=== PATIENT | male | born 1995 | race Caucasian/White ===

== ENCOUNTER 2019-06-20 02:31 | Emergency (ER) | payer MEDICAID ==
[~2019-06-20] VITALS: Ht 190.5 cm; Wt 107.0 kg
[2019-06-20 02:35] VITALS: BP_SYST 116
--- NOTE | 2019-06-20 02:35 | NUR ---
Patient to ER bed 6 to gown for evaluation. Side rails up. Report given to DOROTEO BUCIO.
--- NOTE | 2019-06-20 02:40 | NUR ---
Pt BIB [employer] C/O back and RT leg pain since today. Pt denies any fall or trauma to the area as a cause. Denies any other symptoms at this time. Will continue to monitor.
--- NOTE | 2019-06-20 03:55 | NUR ---
ER Dr. Batista at bedside examining patient.
[2019-06-20] MEDS ORDERED: ONDANSETRON 4 MG ODT TAB PO ONE (04:00)
[2019-06-20] MEDS ORDERED: HYDROcodone/ACETAMIN 5-325 MG TAB (NORCO/ VICODIN) PO ONE (04:00)
--- NOTE | 2019-06-20 04:12 | NUR ---
Patient transported to radiology via wheelchair, accompanied by rad staff.
[2019-06-20 05:17] VITALS: BP_SYST 116
--- NOTE | 2019-06-20 05:17 | NUR ---
Patient given written and verbal discharge instructions and verbalizes understanding. ER MD discussed with patient the results and treatment provided. Patient in stable condition. ID arm band removed. IV catheter removed intact and dressing applied, no active bleeding. Rx of zero given. Patient educated on pain management and to follow up with PMD. Pain Scale 0/10. Opportunity for questions provided and answered. Medication side effect fact sheet provided.
== END 2019-06-20 05:17 | disposition home or self-care (01) ==
LOC: SED 02:31
DX: S33.5XXA Sprain of ligaments of lumbar spine, initial encounter (principal); S23.3XXA Sprain of ligaments of thoracic spine, initial encounter; S80.01XA Contusion of right knee, initial encounter; X58.XXXA Exposure to other specified factors, initial encounter; Y93.89 Activity, other specified; Y92.89 Other specified places as the place of occurrence of the external cause; Y99.8 Other external cause status
CPT/HCPCS: 72050; 72072; 72110; 73564; 73590; 93971; 99284; Q0162